=== PATIENT | male | born 1980 | race Caucasian/White ===

== ENCOUNTER → 2021-06-07 02:24 | Outpatient (CLI) | payer OTHER, SELFPAY ==
[2021-06-07 19:54] LABS: SARS-CoV-2 RNA PCR Positive
== END ==
PROVIDERS: PCP Family Medicine; Visit Provider Family Medicine
DX: U07.1 COVID-19 (principal)
CPT/HCPCS: C9803; U0003; U0005

== ENCOUNTER → 2021-11-08 07:52 | Outpatient (CLI) | payer OTHER, SELFPAY ==
[2021-11-08 19:06] LABS: SARS-CoV-2 RNA PCR Negative
== END ==
PROVIDERS: PCP Family Medicine; Visit Provider Family Medicine
DX: R11.2 Nausea with vomiting, unspecified (principal); Z20.822 Contact with and (suspected) exposure to COVID-19
CPT/HCPCS: C9803; U0003; U0005

== ENCOUNTER 2025-03-24 16:47 | Outpatient (CLI) | payer OTHER, MEDICAID, SELFPAY ==
--- NOTE | ~2025-03-24 | XR_ITS ---
Right Hand Technique: PA, oblique, and lateral views were obtained. Clinical History: Carpal tunnel syndrome Findings: No acute fracture or dislocation is seen. Old, healed fracture of the fifth metacarpal neck noted.. Joint spaces are preserved. Soft tissues are unremarkable. Impression: No acute abnormality. Old, healed fracture of the fifth metacarpal. Reviewed, dictated and finalized at [facility]. Impression: No acute abnormality. Old, healed fracture of the fifth metacarpal.
--- OUTSIDE RECORDS SUMMARY | 2025-03-24 16:53 | XMS_ITS | Clinical Summary ---
Author Organization [facility] Address [address] [place] [address] Care Team Providers Care Calibration Technician Name Role Phone Unavailable Primary Care Provider Unavailabl e Source Comments [facility],non-owned Affiliates and Associated Physician Practices is amultiple site organization consisting of ambulatory clinics and hospital sitesin [place], [place], [place] and [place]. This disclosure is being madepursuant to the Care Everywhere program and may not contain all information available regarding this patient. Last updated 18.[facility] Social History Tobacco Use Types Packs/Day Years Used Date Smoking Tobacco: Never Assessed Sex and Gender Information Value Date Recorded Sex Assigned at Not on file Legal Sex Male 9:50 AM CDT Gender Identity Not on file Sexual Orientation Not on file Plan of Treatment Upcoming Encounters Date Type Department Care Team (Late st Contact Info) Description 04/01/2025 2:10 PM CDT Office Visit [facility] Orth[facility] [id number] [place] [phone] [place] [address] [phone] Health Maintenance Due Date Last Done Comments COLOGUARD (AGES 45-75) - COL ON CA SCREENING 1980 COLON MONITORING 1980 COLONOSCOPY - COLON CA SCREENING [address] CT COLONOGRAPHY - COLON CA SCREENING 1980 Colorectal Cancer Screening 1980 FIT - COLON CA SCREENING 1980 FLEX SIG - COLON CA SCREENING 1980 LIPID TESTING 1980 HIV SCREENING 02/10/1995 HEPATITIS C SCREENING 02/06/1998 DTAP/TDAP/TD VACCINES (1 - Tdap) 02/10/1999 HEPATITIS B VACCINE (1 of 3 - 19+ 3-dose series) 02/10/1999 COVID-19 VACCINE (1 - 2024-2 5 season) 2024 DEPRESSION SCREENING 10/08/2024 INFLUENZA VACCINE (Season Ended) 2025 ZOSTER VACCINE (1 of 2) 02/10/2030 HIB VACCINE Aged Out No longer eligi ble based on patient's age to complete this topic HPV VACCINE Aged Out No longer eligi ble based on patient's age to complete this topic MENINGOCOCCAL (Group B) VACC INE SHARED DECISION-MAKING Aged Out No longer eligibl e based on patient's age to complete this topic MENINGOCOCCAL GROUPS A/C/Y/W VACCINE Aged Out No longer eligible b ased on patient's age to complete this topic PNEUMOCOCCAL VACCINE Aged Out No long er eligible based on patient's age to complete this topic
== END 2025-03-24 16:48 | disposition home or self-care (01) ==
PROVIDERS: PCP Family Medicine; Visit Provider Plastic Surgery
DX: G56.01 Carpal tunnel syndrome, right upper limb (principal); Z87.81 Personal history of (healed) traumatic fracture
CPT/HCPCS: 73130

== ENCOUNTER 2025-05-19 12:52 | Outpatient (CLI) | payer OTHER, MEDICAID, SELFPAY ==
--- NOTE | 2025-05-19 14:30 | NEURO_ITS ---
Impression: # Non-diabetic complains of pain/ numbness of right hand ? # Right Ulnar Neuropathy across the elbow ? # Evolving right Carpal Tunnel Syndrome ? # Abnormal Needle/ EMG exam of right Deltoid, Bicep and Tricep ? # Need to delineate further; MRI of C-spine recommended Nerve Conduction Studies ?Stim Site NR Peak (ms) P-T Amp (?V) Site1 Site2 Delta-P (ms) Dist (cm) Bartolome (m/s) Right Median Anti Sensory (2-3nd Digit) Wrist ? 3.2 10.2 Wrist 2-3nd Digit 3.2 14.0 44 Wrist ? 3.2 10.0 Wrist 2-3nd Digit 3.2 14.0 44 Right Radial Anti Sensory (Base 1st Digit) Wrist ? 2.1 8.9 Wrist Base 1st Digit 2.1 0.0 Right Ulnar Anti Sensory (5th Digit) Wrist ? 2.3 22.2 Wrist 5th Digit 2.3 14.0 61 ?Stim Site NR Onset (ms) O-P Amp (mV) Site1 Site2 Delta-0 (ms) Dist (cm) Bartolome (m/s) Right Median Motor (Abd Poll Brev) Wrist ? 4.0 1.3 Elbow Wrist 5.2 31.0 60 Elbow ? 9.2 1.4 Right Ulnar Motor (Abd Dig Minimi) Wrist ? 2.7 4.7 A Elbow Wrist 5.7 29.0 51 A Elbow ? 8.4 3.1 B Elbow Wrist 4.3 23.0 53 B Elbow ? 7.0 3.1 Electromyography ?Side Muscle Nerve Root Ins Act Fibs Amp Dur Recrt Comment Right 1stDorInt Ulnar C8-T1 Nml Nml Nml Nml Nml Right Ext Indicis Radial (Post Int) C7-8 Nml Nml Nml Nml Nml Right Ext Digitorum Radial (Post Int) C7-8 Nml Nml Nml Nml Nml Right BrachioRad Radial C5-6 Nml Nml Nml Nml Nml Right PronatorTeres Median C6-7 Nml Nml Nml Nml Nml Right Abd Poll Brev Median C8-T1 Nml Nml Nml Nml Nml Right ABD Dig Min Ulnar C8-T1 Nml Nml Nml Nml Nml Right FlexPolLong Median (Ant Int) C7-8 Nml Nml Nml Nml Nml Right Abd Poll Long Radial (Post Int) C7-8 Nml Nml Nml Nml Nml Right Biceps Musculocut C5-6 Nml Nml Nml >12ms +1 Right Triceps Radial C6-7-8 Nml Nml Nml >12ms +1 Right Deltoid Axillary C5-6 Nml Nml Nml >12ms +1
== END 2025-05-19 12:53 | disposition home or self-care (01) ==
LOC: ANHNEURO 12:53
PROVIDERS: PCP Family Medicine; Visit Provider Plastic Surgery
DX: G56.21 Lesion of ulnar nerve, right upper limb (principal); G56.01 Carpal tunnel syndrome, right upper limb
CPT/HCPCS: 95886; 95909